=== PATIENT | female | born 1965 | race African-American/Black ===

== ENCOUNTER 2018-08-31 13:15 | Inpatient (IN) | payer MEDICARE, MEDICAID ==
[~2018-08-31] VITALS: Ht 167.6 cm; Wt 122.0 kg
[2018-08-31 14:48] LABS: BG BASE EXCESS -3.3 mmol/L (-2.0-2.0); BG CARBOXYHEMOGLOBIN 0.5 % (0.5-1.5); BG DEOXYHEMOGLOBIN 12.6 % (0.0-5.0); BG FRACTION INSPIRED OXYGEN 21; BG METHEMOGLOBIN 0.1 % (0.0-1.5); BG OXYGEN SATURATION 87.3 % (92.0-98.5); BG OXYHEMOGLOBIN 86.8 % (94.0-97.0); BG PCO2 40.5 mmHg (35.0-45.0); BG PH 7.353 (7.350-7.450); BG PO2 57.6 mmHg (75.0-100.0); BG SAMPLE SITE RIGHT RADIAL; BG TOTAL HEMOGLOBIN 12.3 g/dL (12.0-18.0); BG VENT MODE ROOM AIR
[2018-08-31 14:57] LABS: BASOPHILS % 0.7 % (0.0-2.0); EOSINOPHILS % 1.9 % (0.0-5.0); HEMATOCRIT. 34.8 % (36.0-48.0); HEMOGLOBIN. 11.8 g/dL (12.0-16.0); LYMPHOCYTES % 8.8 % (20.0-50.0); MEAN CORPUSCULAR HEMOGLOBIN 32.1 pg (28.0-32.0); MEAN CORPUSCULAR VOLUME 94.7 fL (81.0-99.0); MEAN PLATELET VOLUME 7.8 fl (7.4-10.4); MONOCYTES % 9.1 % (2.0-8.0); NEUTROPHILS % 79.5 % (40.0-76.0); PLATELET 223 x1000/uL (130-400); RED BLOOD CELL COUNT 3.68 mill/uL (4.2-5.4); RED CELL DISTRIBUTION WIDTH 14.8 % (11.6-14.6)
[2018-08-31 15:01] LABS: CHLORIDE 100 mEq/L (98-107)
[2018-08-31 15:11] LABS: CREATINE KINASE 52 IU/L (26-192)
[2018-08-31] MEDS ORDERED: SODIUM BICARBONATE 8.4% 1 MEQ/ML 50ML SYR IV ONE (18:00)
[2018-08-31] MEDS ORDERED: INSULIN REGULAR (HUMULIN R) 300UNITS/3ML IV ONE (18:00)
[2018-08-31] MEDS ORDERED: DEXTROSE 50% WATER 50ML SYRINGE IV ONE (18:00)
[2018-08-31] MEDS ORDERED: DIPHENHYDRAMINE 25MG CAPSULE PO ONE (18:45)
[2018-08-31] MEDS ORDERED: DIPHENHYDRAMINE 50MG/ML VIAL IV ONE (18:45)
[2018-08-31] MEDS: ALBUTEROL (0.083%) 2.5MG/3ML NEB HHN SCH ×3 (19:26→20:16)
[2018-09-01 10:00] VITALS: BP 126/82
[2018-09-01] MEDS ORDERED: GABA-531 PO (11:02)
[2018-09-01] MEDS ORDERED: AMOX-424 PO (11:02)
[2018-09-01] MEDS ORDERED: ENAL10TA PO (11:02)
[2018-09-01] MEDS ORDERED: CINA30 PO (11:02)
[2018-09-01] MEDS ORDERED: CARV3.1242 PO (11:02)
[2018-09-01] MEDS ORDERED: RANI150T7 PO (11:02)
[2018-09-01] MEDS ORDERED: FLUO20CA33 PO (11:02)
[2018-09-01] MEDS ORDERED: ONDANSETRON HCL 4MG/2ML INJ IV PRN (11:30)
[2018-09-01] MEDS ORDERED: DEXTROSE 50% WATER 50ML SYRINGE IV PRN (11:45)
[2018-09-01] MEDS: BLOOD SUGAR DIAGNOSTIC STRIP TEST SCH ×3 (12:34→21:00)
[2018-09-01] MEDS: INSULIN LISPRO 100 UNITS/ML SUBCUT SCH ×3 (12:34→21:00)
[2018-09-01 13:00] VITALS: BP 103/60
[2018-09-01] MEDS: ENOXAPARIN 40MG/0.4ML SYR SUBCUT SCH (13:26)
[2018-09-01] MEDS ORDERED: LIDOCAINE HCL/PF 1% 2ML VIAL ONE (13:50)
[2018-09-01 16:09] VITALS: BP 130/82
[2018-09-01 16:30] VITALS: BP 103/60
[2018-09-01 18:28] LABS: BASOPHILS % 0.5 % (0.0-2.0); EOSINOPHILS % 2.3 % (0.0-5.0); HEMATOCRIT. 34.9 % (36.0-48.0); HEMOGLOBIN. 11.6 g/dL (12.0-16.0); LYMPHOCYTES % 14.9 % (20.0-50.0); MEAN CORPUSCULAR HEMOGLOBIN 31.4 pg (28.0-32.0); MEAN CORPUSCULAR VOLUME 94.4 fL (81.0-99.0); MEAN PLATELET VOLUME 8.4 fl (7.4-10.4); MONOCYTES % 6.8 % (2.0-8.0); NEUTROPHILS % 75.5 % (40.0-76.0); PLATELET 206 x1000/uL (130-400); RED CELL DISTRIBUTION WIDTH 15.2 % (11.6-14.6)
[2018-09-01 22:30] LABS: BG BASE EXCESS -3.5 mmol/L (-2.0-2.0); BG CARBOXYHEMOGLOBIN 0.7 % (0.5-1.5); BG DEOXYHEMOGLOBIN 3.7 % (0.0-5.0); BG FRACTION INSPIRED OXYGEN 32; BG HCO3 ACT 20.5 mmol/L (22.0-26.0); BG METHEMOGLOBIN 0.3 % (0.0-1.5); BG OXYGEN SATURATION 96.3 % (92.0-98.5); BG OXYHEMOGLOBIN 95.3 % (94.0-97.0); BG PCO2 33.9 mmHg (35.0-45.0); BG PO2 93.8 mmHg (75.0-100.0); BG SAMPLE SITE RIGHT RADIAL; BG TOTAL HEMOGLOBIN 12.7 g/dL (12.0-18.0); BG VENT MODE NASAL CANNULA
[2018-09-02] VITALS: BP 98/72
[2018-09-02 04:00] VITALS: BP 109/64
[2018-09-02 06:35] LABS: BASOPHILS % 0.5 % (0.0-2.0); HEMATOCRIT. 35.9 % (36.0-48.0); HEMOGLOBIN. 11.8 g/dL (12.0-16.0); LYMPHOCYTES % 14.7 % (20.0-50.0); MEAN CORPUSCULAR HEMOGLOBIN 31.3 pg (28.0-32.0); MEAN CORPUSCULAR VOLUME 95.1 fL (81.0-99.0); MONOCYTES % 11.9 % (2.0-8.0); NEUTROPHILS % 70.9 % (40.0-76.0); PLATELET 216 x1000/uL (130-400); RED BLOOD CELL COUNT 3.77 mill/uL (4.2-5.4); RED CELL DISTRIBUTION WIDTH 15.4 % (11.6-14.6)
[2018-09-02] MEDS: INSULIN LISPRO 100 UNITS/ML SUBCUT SCH ×4 (07:50→21:00)
[2018-09-02] MEDS: BLOOD SUGAR DIAGNOSTIC STRIP TEST SCH ×4 (08:08→21:00)
[2018-09-02 08:27] VITALS: BP 141/80
[2018-09-02 12:10] VITALS: BP 143/98
[2018-09-02] MEDS: ENOXAPARIN 40MG/0.4ML SYR SUBCUT SCH (15:20)
[2018-09-02 15:37] VITALS: BP_SYST 143; BP_SYST 97; BP_DIAS 57; BP_DIAS 98
[2018-09-02 20:00] VITALS: BP 111/72
[2018-09-03] VITALS: BP 103/55
[2018-09-03 04:00] VITALS: BP 121/77
[2018-09-03] MEDS: BLOOD SUGAR DIAGNOSTIC STRIP TEST SCH ×2 (07:20→12:29)
[2018-09-03] MEDS: INSULIN LISPRO 100 UNITS/ML SUBCUT SCH ×2 (07:50→12:29)
[2018-09-03 08:00] VITALS: BP 111/72
[2018-09-03] MEDS ORDERED: DIPHENHYDRAMINE 25MG CAPSULE PO PRN (09:30)
[2018-09-03 12:00] VITALS: BP 132/80
[2018-09-03] MEDS: ENOXAPARIN 40MG/0.4ML SYR SUBCUT SCH (12:28)
[2018-09-03 14:06] LABS: HEMATOCRIT 35.4 % (36.0-48.0); HEMOGLOBIN 11.7 g/dL (12.0-16.0); MEAN CORPUSCULAR HEMOGLOBIN 31.3 pg (28.0-32.0); MEAN CORPUSCULAR VOLUME 94.6 fL (81.0-99.0); PLATELET 195 x1000/uL (130-400); RED BLOOD CELL COUNT 3.74 mill/uL (4.2-5.4); RED CELL DISTRIBUTION WIDTH 14.9 % (11.6-14.6)
[2018-09-03 16:00] VITALS: BP 116/74
[2018-09-03 16:50] VITALS: BP 116/74
== END 2018-09-03 18:00 | disposition home or self-care (01) | DRG 91 ==
LOC: ER 13:15 → 6WST 18:40 → EDBEDREQ 18:43 → ENRESERV 09-01 07:27
PROVIDERS: ADMIT Internal Medicine; ATTEND Internal Medicine
PROC: 5A1D70Z Performance of Urinary Filtration, Intermittent, Less than 6 Hours Per Day (ICD-10-PCS; principal; 2018-09-01)
PROC: 5A1D70Z Performance of Urinary Filtration, Intermittent, Less than 6 Hours Per Day (ICD-10-PCS; 2018-09-02)
PROC: 4A00X4Z Measurement of Central Nervous Electrical Activity, External Approach (ICD-10-PCS; 2018-09-02)
DX: G92 Toxic encephalopathy (principal); N18.6 End stage renal disease; I12.0 Hypertensive chronic kidney disease with stage 5 chronic kidney disease or end stage renal disease; Z68.41 Body mass index [BMI] 40.0-44.9, adult; E87.5 Hyperkalemia; E21.3 Hyperparathyroidism, unspecified; E66.01 Morbid (severe) obesity due to excess calories; L29.9 Pruritus, unspecified; D63.8 Anemia in other chronic diseases classified elsewhere; E78.5 Hyperlipidemia, unspecified; E11.22 Type 2 diabetes mellitus with diabetic chronic kidney disease; E11.42 Type 2 diabetes mellitus with diabetic polyneuropathy; E11.40 Type 2 diabetes mellitus with diabetic neuropathy, unspecified; Y92.89 Other specified places as the place of occurrence of the external cause; Z99.2 Dependence on renal dialysis; Z90.710 Acquired absence of both cervix and uterus; Z79.899 Other long term (current) drug therapy; Z91.19 Patient's noncompliance with other medical treatment and regimen
CPT/HCPCS: 36415; 36600; 70551; 71045; 80048; 80061; 82140; 82375; 82550; 82805; 82962; 83036; 84443; 85027; 92610; 93005; 94640; 96361; 96374; 96375; 99291; J1200; J1650; J1815; J3490; J7611; Q0163

== ENCOUNTER 2021-08-13 08:55 | Inpatient (IN) | payer MEDICARE, MEDICAID ==
[~2021-08-13] VITALS: Ht 175.3 cm; Wt 132.0 kg
[~2021-08-13 08:55] MED LIST: CARV3.1242 PO; CINA30 PO; ENAL10TA19 PO; FLUO20CA33 PO; RANI150T7 PO
[2021-08-13] MEDS ORDERED: ROPINIROLE (09:05)
[2021-08-13] MEDS ORDERED: PREGABALIN (09:05)
[2021-08-13] MEDS ORDERED: DIPHENHYDRAMINE 25MG CAPSULE PO ONE (09:30)
[2021-08-13 10:08] LABS: BASOPHILS % 1.1 % (0.0-2.0); EOSINOPHILS % 1.4 % (0.0-5.0); HEMATOCRIT. 37.6 % (36.0-48.0); HEMOGLOBIN. 12.4 g/dL (12.0-16.0); LYMPHOCYTES % 9.2 % (20.0-50.0); MEAN CORPUSCULAR HEMOGLOBIN 31.1 pg (28.0-32.0); MEAN CORPUSCULAR VOLUME 94.2 fL (81.0-99.0); MONOCYTES % 8.8 % (2.0-8.0); NEUTROPHILS % 79.5 % (40.0-76.0); PLATELET 120 x1000/uL (130-400); RED BLOOD CELL COUNT 3.99 mill/uL (4.2-5.4); RED CELL DISTRIBUTION WIDTH 15.3 % (11.6-14.6)
[2021-08-13 10:14] LABS: CHLORIDE 106 mEq/L (98-107)
[2021-08-13] MEDS ORDERED: SODIUM POLYSTYRENE SULFONATE 15 G/60 ML BOT PO ONE (12:15)
[2021-08-13] MEDS ORDERED: HYDROXYZINE 25MG TABLET PO ONE (12:15)
[2021-08-13] MEDS ORDERED: ACETAMINOPHEN 325MG TABLET PO PRN (13:15)
[2021-08-13] MEDS ORDERED: ZOLPIDEM TARTRATE 5MG TABLET PO PRN (13:15)
[2021-08-13] MEDS ORDERED: MAGNESIUM/ALUMINUM HYDROXIDE/SIMETHICONE 30ML UDC PO PRN (13:15)
[2021-08-13] MEDS ORDERED: IPRATROPIUM/ALBUTEROL 0.5-3(2.5)MG/3ML NEB NEB PRN (13:15)
[2021-08-13] MEDS ORDERED: ONDANSETRON HCL 4MG/2ML INJ IV PRN (13:15)
[2021-08-13] MEDS ORDERED: GUAIFENESIN 200MG/10ML SUGAR FREE UDC PO PRN (13:15)
[2021-08-13] MEDS ORDERED: CLONIDINE 0.1MG TABLET PO PRN (13:15)
[2021-08-13] MEDS ORDERED: DOCUSATE SODIUM 100MG CAPSULE PO PRN (13:15)
[2021-08-13] MEDS ORDERED: NITROGLYCERIN 0.4MG TABLET SL SL PRN (13:15)
[2021-08-13] MEDS: AMLODIPINE 10MG TABLET PO SCH (14:03)
[2021-08-13] MEDS: FAMOTIDINE 20MG TABLET PO SCH (14:03)
[2021-08-13] MEDS: ENOXAPARIN 40MG/0.4ML SYR SUBCUT SCH (14:05)
[2021-08-13 14:18] LABS: ETHANOL BLOOD < 10 mg/dL
[2021-08-13 14:20] LABS: TOTAL IRON BINDING CAPACITY 325 ug/dL (250-450)
[2021-08-13 14:21] LABS: LDL CHOLESTEROL 64 mg/dL (5-100)
[2021-08-13 14:23] LABS: HDL CHOLESTEROL 61 mg/dL (40-59)
[2021-08-13 15:22] LABS: BG CARBOXYHEMOGLOBIN 0.9 % (0.5-1.5); BG DEOXYHEMOGLOBIN 5.9 % (0.0-5.0); BG FRACTION INSPIRED OXYGEN 21; BG HCO3 ACT 21.1 mmol/L (22.0-26.0); BG METHEMOGLOBIN 0.1 % (0.0-1.5); BG OXYHEMOGLOBIN 93.1 % (94.0-97.0); BG PCO2 42.7 mmHg (35.0-45.0); BG PH 7.311 (7.350-7.450); BG PO2 78.5 mmHg (75.0-100.0); BG SAMPLE SITE RIGHT RADIAL; BG TOTAL HEMOGLOBIN 13.2 g/dL (12.0-18.0); BG VENT MODE ROOM AIR
[2021-08-13] MEDS: NITROGLYCERIN OINT 1GM/INCH UDPKT TD SCH ×2 (15:45)
[2021-08-13 16:51] LABS: FOLIC ACID (FOLATE) SERUM 12.1 ng/mL (>5.38)
[2021-08-13] MEDS: SEVELAMER CARBONATE 800 MG TABLET PO SCH (17:30)
[2021-08-13] MEDS: CARVEDILOL 3.125 MG TABLET PO SCH ×2 (17:30→17:53)
[2021-08-14] MEDS: DIPHENHYDRAMINE 50MG/ML VIAL IV PRN ×2 (02:04→07:06)
[2021-08-14 06:17] LABS: BASOPHILS % 0.8 % (0.0-2.0); EOSINOPHILS % 2.4 % (0.0-5.0); LYMPHOCYTES % 10.8 % (20.0-50.0); MEAN CORPUSCULAR HEMOGLOBIN 30.6 pg (28.0-32.0); MEAN CORPUSCULAR VOLUME 94.4 fL (81.0-99.0); MEAN PLATELET VOLUME 9.3 fl (7.4-10.4); MONOCYTES % 8.6 % (2.0-8.0); NEUTROPHILS % 77.4 % (40.0-76.0); PLATELET 130 x1000/uL (130-400); RED BLOOD CELL COUNT 4.24 mill/uL (4.2-5.4); RED CELL DISTRIBUTION WIDTH 15.5 % (11.6-14.6)
[2021-08-14 06:32] LABS: CHLORIDE 105 mEq/L (98-107)
[2021-08-14 06:52] LABS: PHOSPHORUS 8.7 mg/dL (2.5-4.9)
[2021-08-14] MEDS: AMLODIPINE 10MG TABLET PO SCH (08:19)
[2021-08-14] MEDS: FAMOTIDINE 20MG TABLET PO SCH (09:00)
[2021-08-14] MEDS: ASPIRIN 325MG EC TABLET PO SCH (09:00)
[2021-08-14 09:16] VITALS: BP 163/96
[2021-08-14 09:19] VITALS: BP 163/96
[2021-08-14 12:00] VITALS: BP 148/80
[2021-08-14] MEDS: CETIRIZINE 10MG TABLET PO SCH (12:45)
[2021-08-14 16:00] VITALS: BP 145/80
[2021-08-14] MEDS: CARVEDILOL 3.125 MG TABLET PO SCH (17:40)
[2021-08-14] MEDS: NITROGLYCERIN OINT 1GM/INCH UDPKT TD SCH ×3 (17:41→21:56)
[2021-08-14] MEDS: ENOXAPARIN 40MG/0.4ML SYR SUBCUT SCH (17:42)
[2021-08-14 20:00] VITALS: BP 105/56
[2021-08-14 21:00] VITALS: BP 144/50
[2021-08-15] VITALS: BP 135/75
[2021-08-15] MEDS: ACETAMINOPHEN 325MG TABLET PO PRN ×3 (01:44→23:15)
[2021-08-15 04:00] VITALS: BP 127/89
[2021-08-15] MEDS: NITROGLYCERIN OINT 1GM/INCH UDPKT TD SCH ×3 (06:02→21:21)
[2021-08-15] MEDS: CARVEDILOL 3.125 MG TABLET PO SCH (06:02)
[2021-08-15] MEDS: SEVELAMER CARBONATE 800 MG TABLET PO SCH ×4 (07:09→17:28)
[2021-08-15 08:00] VITALS: BP 145/88
[2021-08-15] MEDS: AMLODIPINE 10MG TABLET PO SCH (08:17)
[2021-08-15] MEDS: ASPIRIN 325MG EC TABLET PO SCH (08:17)
[2021-08-15] MEDS: CETIRIZINE 10MG TABLET PO SCH (08:17)
[2021-08-15] MEDS: FAMOTIDINE 20MG TABLET PO SCH (08:18)
[2021-08-15 12:00] VITALS: BP 116/82
[2021-08-15] MEDS: ENOXAPARIN 40MG/0.4ML SYR SUBCUT SCH (13:05)
[2021-08-15 16:01] VITALS: BP 129/78
[2021-08-15] MEDS: CARVEDILOL 6.25 MG TABLET PO SCH (17:28)
[2021-08-16] VITALS: BP 116/72
[2021-08-16 04:00] VITALS: BP 130/90
[2021-08-16] MEDS: CARVEDILOL 6.25 MG TABLET PO SCH ×2 (05:43→17:13)
[2021-08-16] MEDS: SEVELAMER CARBONATE 800 MG TABLET PO SCH ×3 (05:44→17:13)
[2021-08-16] MEDS: NITROGLYCERIN OINT 1GM/INCH UDPKT TD SCH ×3 (05:44→20:54)
[2021-08-16 08:00] VITALS: BP 145/104
[2021-08-16] MEDS: CETIRIZINE 10MG TABLET PO SCH (09:32)
[2021-08-16] MEDS: ASPIRIN 81MG EC TABLET PO SCH (09:32)
[2021-08-16] MEDS: FAMOTIDINE 20MG TABLET PO SCH (09:33)
[2021-08-16] MEDS: AMLODIPINE 10MG TABLET PO SCH (09:33)
[2021-08-16 12:00] VITALS: BP 112/77
[2021-08-16] MEDS: ACETAMINOPHEN 325MG TABLET PO PRN (14:34)
[2021-08-16] MEDS: ENOXAPARIN 40MG/0.4ML SYR SUBCUT SCH (14:35)
[2021-08-16 16:00] VITALS: BP 131/88
[2021-08-16 20:00] VITALS: BP 128/78
[2021-08-17] VITALS: BP 133/82
[2021-08-17] MEDS: CARVEDILOL 6.25 MG TABLET PO SCH (06:51)
[2021-08-17] MEDS: SEVELAMER CARBONATE 800 MG TABLET PO SCH ×2 (06:51→12:30)
[2021-08-17] MEDS: NITROGLYCERIN OINT 1GM/INCH UDPKT TD SCH (06:51)
[2021-08-17 08:00] VITALS: BP 147/99
[2021-08-17] MEDS: AMLODIPINE 10MG TABLET PO SCH (09:47)
[2021-08-17] MEDS: FAMOTIDINE 20MG TABLET PO SCH (09:47)
[2021-08-17] MEDS: ASPIRIN 81MG EC TABLET PO SCH (09:47)
[2021-08-17] MEDS: CETIRIZINE 10MG TABLET PO SCH (09:48)
[2021-08-17 12:00] VITALS: BP 125/88
[2021-08-17 12:53] VITALS: BP 125/88
[2021-08-17 21:09] LABS: HEPATITIS B SURFACE ANTIGEN NEGATIVE
== END 2021-08-17 13:58 | disposition home or self-care (01) | DRG 91 ==
LOC: ER 09:13 → MICUSO 12:06 → EDBEDREQ 12:29 → EDBEDREQTM 12:29 → SUPCPDRO 13:01 → 8WST 08-14 09:00
PROVIDERS: ADMIT Internal Medicine; ATTEND Internal Medicine
PROC: 5A1D70Z Performance of Urinary Filtration, Intermittent, Less than 6 Hours Per Day (ICD-10-PCS; principal; 2021-08-14)
PROC: 5A1D70Z Performance of Urinary Filtration, Intermittent, Less than 6 Hours Per Day (ICD-10-PCS; 2021-08-16)
DX: G92.8 Other toxic encephalopathy (principal); I21.A1 Myocardial infarction type 2; N18.6 End stage renal disease; I50.23 Acute on chronic systolic (congestive) heart failure; I13.2 Hypertensive heart and chronic kidney disease with heart failure and with stage 5 chronic kidney disease, or end stage renal disease; N25.81 Secondary hyperparathyroidism of renal origin; Z68.41 Body mass index [BMI] 40.0-44.9, adult; E88.09 Other disorders of plasma-protein metabolism, not elsewhere classified; E83.51 Hypocalcemia; E11.22 Type 2 diabetes mellitus with diabetic chronic kidney disease; Z20.822 Contact with and (suspected) exposure to COVID-19; D64.9 Anemia, unspecified; E87.5 Hyperkalemia; G25.81 Restless legs syndrome; E66.9 Obesity, unspecified; I16.0 Hypertensive urgency; I44.0 Atrioventricular block, first degree; E11.42 Type 2 diabetes mellitus with diabetic polyneuropathy; Z79.899 Other long term (current) drug therapy; Z99.2 Dependence on renal dialysis
CPT/HCPCS: 36415; 36600; 70551; 71045; 80053; 80061; 80320; 82140; 82375; 82550; 82553; 82607; 82746; 82805; 82962; 83036; 83540; 83550; 83605; 83735; 83880; 84100; 84145; 84439; 84443; 84484; 85025; 85379; 86705; 86709; 86803; 87340; 87426; 93005; 93306; 93970; 97162; 97165; 99291; C1893; J1200; J1650; Q0163; G0480